=== PATIENT | male | born 1950 | race Caucasian/White ===

== ENCOUNTER 2018-11-25 12:08 | Outpatient (CLI) | payer MEDICARE ==
--- NOTE | 2018-11-25 14:39 | MRI ---
MRI BRAIN WITHOUT CONTRAST: Date: 11/25/18 Multiplanar, multisequence imaging of brain obtained. INDICATION: TIA. FINDINGS: Mild to moderate cortical atrophy. Mild chronic ischemic white matter change. No evidence of restrict ed diffusion. No mass or edema. Intracranial internal carotid arteries, proximal cerebral arteries, a nd basilar arteries show flow-voids. IMPRESSION: 1. Mild cortical atrophy. 2. Mild chronic ischemic white matter change. 3. No acute process. POS: OFF
== END 2018-11-25 12:09 | disposition home or self-care (01) ==
LOC: SCSMRI 12:08
PROVIDERS: ATTEND Internal Medicine
DX: G45.9 Transient cerebral ischemic attack, unspecified (principal); G31.9 Degenerative disease of nervous system, unspecified
CPT/HCPCS: 70551

== ENCOUNTER 2018-12-02 10:22 | Outpatient (CLI) | payer MEDICARE ==
--- NOTE | 2018-12-02 11:49 | ULT ---
BILATERAL CAROTID DUPLEX ULTRASOUND: HISTORY: TIA TECHNIQUE: Grayscale, color-flow and spectral Doppler ultrasound imaging of the extracranial carotid artery syst ems was performed bilaterally. FINDINGS: Mild plaque formation. The peak systolic velocity in the right ICA measures 92 cm/s. The peak systolic velocity in the left ICA measures 89 cm/s. Vertebral flow: antegrade, bilaterally. IMPRESSION: No hemodynamically significant stenosis of Both ICAs.
== END 2018-12-02 10:23 | disposition home or self-care (01) ==
LOC: ULT 10:22
PROVIDERS: ATTEND Internal Medicine
DX: G45.9 Transient cerebral ischemic attack, unspecified (principal)
CPT/HCPCS: 93880